=== PATIENT | male | born 1980 | race Caucasian/White ===

== ENCOUNTER 2022-06-30 07:48 | Day surgery (SDC) | payer OTHER ==
[~2022-06-30] VITALS: Ht 188 cm; Wt 73.9 kg
[2022-06-30] MEDS ORDERED: MUPIROCIN 2% TOPICAL OINTMENT 22 GM TP ONE (11:21)
[2022-06-30] MEDS ORDERED: LR 1,000 ML IV.SOLN IV ONE (11:21)
[2022-06-30] MEDS ORDERED: PROPOFOL 200MG/ 20ML VIAL (DIPRIVAN) IV ONE (11:21)
[2022-06-30] MEDS ORDERED: LIDOCAINE 2%, 20 ML MDV INJ ONE (11:21)
[2022-06-30] MEDS ORDERED: DESFLURANE 15 MIN GAS INH ONE (11:21)
[2022-06-30] MEDS ORDERED: DEXAMETHASONE SOD PHOSPHATE 4 MG/ML VIAL IVP ONE (11:21)
[2022-06-30] MEDS ORDERED: ONDANSETRON HCL 4 MG/2 ML VIAL IVP ONE (11:21)
[2022-06-30] MEDS ORDERED: fentaNYL CITRATE 250 MCG/5 ML AMP IV ONE (11:21)
[2022-06-30] MEDS ORDERED: SUGAMMADEX SODIUM 200 MG/2 ML VIAL IV ONE (11:21)
[2022-06-30] MEDS ORDERED: LIDOCAINE/EPI 1% 1:100000 20 ML VIAL INJ ONE (11:21)
[2022-06-30] MEDS ORDERED: ROCURONIUM BROMIDE 10 MG/ML (ZEMURON) IV ONE (11:21)
[2022-06-30] MEDS ORDERED: MIDAZOLAM HCL 5 MG/5 ML VIAL IVP ONE (11:21)
[2022-06-30] MEDS ORDERED: MEPERIDINE HCL/PF 25 MG/ML DISP.SYRIN IVP PRN (12:00)
[2022-06-30] MEDS ORDERED: LR 1,000 ML IV SCH (12:00)
[2022-06-30] MEDS ORDERED: MIDAZOLAM HCL 2 MG/2 ML VIAL (VERSED) IVP PRN (12:00)
[2022-06-30] MEDS ORDERED: hydrALAZINE HCL 20 MG/ML VIAL IVP PRN (12:00)
[2022-06-30] MEDS ORDERED: METOCLOPRAMIDE HCL 10 MG/2 ML VIAL IVP PRN (12:00)
[2022-06-30] MEDS ORDERED: HYDROmorphone 1 MG/ML INJ. CARTRIDGE IVP PRN ×2 (12:00)
[2022-06-30] MEDS ORDERED: ACETAMINOPHEN I.V. 1000 MG 100 ML IV ONE (12:13)
[2022-06-30 16:00] VITALS: BP_SYST 121
== END 2022-06-30 17:10 | disposition home or self-care (01) ==
LOC: SDS 07:48 → SMU 07:49 → SDS 17:10
PROVIDERS: ATTEND Otolaryngology
DX: J34.2 Deviated nasal septum (principal); D38.5 Neoplasm of uncertain behavior of other respiratory organs; J45.20 Mild intermittent asthma, uncomplicated; G62.9 Polyneuropathy, unspecified; Z20.822 Contact with and (suspected) exposure to COVID-19; Z79.899 Other long term (current) drug therapy
CPT/HCPCS: 36415 ×2; 31256; 30140; 30520; 88304; 88311; 87426; U0003; J3490; J1100; J2001; J2250; J2405; J2704; J3010; J7120; J0131; 88305